=== PATIENT | male | born 1960 | race Native Hawaiian/Other Pacific Islander ===

== ENCOUNTER 2022-04-24 10:42 | Outpatient (CLI) | payer OTHER, SELFPAY ==
[2022-04-24 14:23] LABS: Chloride* 108 mmol/L (96-114); Potassium* 4.5 mmol/L (3.6-5.1); Sodium* 139 mmol/L (135-149)
[2022-04-24 14:26] LABS: Blood Urea Nitrogen* 18 mg/dL (7-30); Calcium* 9.2 mg/dL (8.4-10.6); Carbon Dioxide* 23 mmol/L (20-32); Cholesterol* 175 mg/dL (90-199); Creatinine* 1.2 mg/dL (0.5-1.5); Estimated Glomerular Filt Rate 69 ml/min; Glucose* 115 mg/dL (60-115); Triglycerides* 241 mg/dL (40-149)
[2022-04-24 14:27] LABS: HDL Cholesterol* 38 mg/dL (>=40); LDL Cholesterol Calculated 89 mg/dL (<100)
[2022-04-24 14:57] LABS: PSA Screen* 1.88 ng/mL (0.10-4.00)
== END 2022-04-24 10:43 | disposition home or self-care (01) ==
PROVIDERS: PCP Family Medicine; Visit Provider Family Medicine
DX: Z00.00 Encounter for general adult medical examination without abnormal findings (principal); N40.0 Benign prostatic hyperplasia without lower urinary tract symptoms; Z12.5 Encounter for screening for malignant neoplasm of prostate; Z13.6 Encounter for screening for cardiovascular disorders
CPT/HCPCS: 80048; 80061; 84153

== ENCOUNTER 2022-07-01 10:03 | Emergency (ER) | payer OTHER, SELFPAY ==
[2022-07-01 10:16] VITALS: BP 139/80; PULSE 88; RESP 18; TEMP 36.4; O2SAT 96; BMI 27.3
--- NOTE | 2022-07-01 10:34 | CRLHL7_ITS ---
For Patients: As a result of the Century Cures Act, medical imaging exams and procedure reports are released immediately into your electronic medical record. You may view this report before your referring provider. If you have questions, please contact your health care provider. INDICATION: Right neck swelling. TECHNIQUE: CT of the neck soft tissues performed with IV contrast. Contrast: 91 cc Isovue 370. COMPARISON: None available at this institution. FINDINGS: Prominence of the palatine tonsils, with slight heterogeneity. Left tonsilliths. No discrete fluid collection to suggest drainable abscess. The parotid and submandibular glands appear unremarkable. The thyroid gland is normal. There are large bilateral level 2A, right 3 and 4 lymph nodes, measuring up to 1.3 cm in short axis diameter on the right and 1.1 cm on the left. No discrete fluid collection identified. The visualized major vascular structures appear intact. The visualized intracranial components appear grossly intact. Visualized orbits and contents appear unremarkable. The paranasal sinuses are clear as visualized. Dependent atelectasis. Mild spondylosis of the cervical spine. IMPRESSION: 1. Tonsillitis. No defined fluid collection to suggest drainable abscess. 2. Bilateral cervical chain adenopathy may be reactive. Clinical and/or imaging follow-up to ensure resolution after appropriate treatment is recommended. Please note that all CT scans at this facility use dose modulation, iterative reconstruction, and/or weight-based dosing when appropriate to reduce radiation dose to as low as reasonably achievable. Dictated by Justin Syed MD @ 07/01/2022 12:13:39 PM (Electronically Signed)
--- NOTE | 2022-07-01 10:45 | ED_ITS ---
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 With swallowing he has pain on the right side of his neck as well. He had a negative COVID test, but no other testing. 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 Not had any history of the significant throat issues. No real shortness of breath, no chest pain, no other symptoms significant symptoms. As mention reports the fever in chill part of the illness is gone, but persistent sore throat. Related Data Home Medications Medication Instructions Recorded Confirmed tamsulosin 0.4 mg capsule 0.4 mg PO QDAY 04/24/22 04/24/22 Previous Rx's Medication Instructions Recorded tadalafil 5 mg tablet 2.5 mg PO QDAY #45 tabs 04/24/22 tamsulosin 0.4 mg capsule (Flomax) 0.4 mg PO QHS #90 caps 04/24/22 amoxicillin 500 mg-potassium 1 tab PO BID #20 tabs 07/01/22 clavulanate 125 mg tablet (Augmentin) hydrocodone 5 mg-acetaminophen 325 1 tab PO Q8H #7 tabs 07/01/22 mg tablet prednisone 20 mg tablet 20 mg PO BID #6 tabs 07/01/22 Allergies Allergy/AdvReac Type Severity Reaction Status Date / Time No Known Drug Allergies Allergy Verified 07/01/22 11:35 Review of Systems Status of ROS: Reports: 6 or more systems reviewed and unremarkable except as noted in History and below [facility] Medical History BPH (benign prostatic hyperplasia) Erectile dysfunction Latent tuberculosis Surgical History History of colonoscopy (01/08/12) History of repair of fracture of facial bone (2006) Status post right inguinal hernia repair (1989) Social History Narrative: , hospitalist [employer], nonsmoker Smoking Status: Never smoker Exam Narrative: Exam Narrative: Objective: Patient talks in normal sentences, has no trismus. Does have some right-sided cervical adenopathy that is slightly enlarged, his throat does show slight enlargement of his right side of his throat, but no obvious abscess. Does have some tonsillar swelling on the right as well, and some generalized redness in the back of the throat. No exudate noted Good peripheral perfusion noted, denies any skin rashes. Const: Vital Signs, click to edit/add: Vital Signs - 24 hr 07/01/22 10:16 07/01/22 12:53 Temperature 97.6 F Pulse Rate [Right Pulse Oximeter] 88 Respiratory Rate 18 18 Blood Pressure [Ri ght Upper Arm] 139/80 Pulse Oximetry 96 94 Oxygen Delivery Me thod Room Air Room Air Course Vital Signs Vital signs: Initial Vital Signs Temperature 97.6 F 07/01/22 10:16 Temperature Source Temporal Artery Scan 07/01/22 10:16 Pulse Rate 88 07/01/22 10:16 Respiratory Rate 18 07/01/22 10:16 Blood Pressure 139/80 07/01/22 10:16 Blood Pressure Mean 99 07/01/22 10:16 Blood Pressure Position Sitting 07/01/22 10:16 Pulse Oximetry 96 07/01/22 10:16 Oxygen Delivery Method 07/01/22 10:16 Vital Signs Temperature 97.6 F 07/01/22 10:16 Pulse Rate 88 07/01/22 10:16 Respiratory Rate 18 07/01/22 10:16 Blood Pressure 139/80 07/01/22 10:16 Pulse Oximetry 96 07/01/22 10:16 Oxygen Delivery Method 07/01/22 10:16 Temperature 97.6 F 07/01/22 10:16 Pulse Rate 88 07/01/22 10:16 Respiratory Rate 18 07/01/22 12:53 Blood Pressure 139/80 07/01/22 10:16 Pulse Oximetry 94 07/01/22 12:53 Oxygen Delivery Method 07/01/22 12:53 Medical Decision Making MDM Narrative Medical decision making narrative: At this point the patient has a post viral infection type severe sore throat, rule out right-sided peritonsillar abscess, strep, COVID/RSV/influenza. Patient will get the studies done, CT scan of the neck soft tissue, IV fluid, IV pain control, IV antibiotics. He also reports that he has had fetid type breath, and will start antibiotics at this time. Will use Unasyn, and we can hands bedoya to Augmentin for home. Will also give a dose of IV Solu-Medrol for the swelling. Disposition pending his CT scan results. Addendum: The patient is positive for strep throat, he has no evidence of abscess on his CT scan of the neck, his his COVID/RSV/influenza is negative. Labs look reassuring. Feels little better with pain medication and steroid, Unasyn been give IV. Will treat for strep throat with Augmentin 500 b.i.d. times 10 days, fluids, rest, Tylenol as needed, De [place] sparingly as it is quite sedating for Brandon, prednisone 20 mg b.i.d. for 3 days. These medicines were faxed into on pharmacy. Patient is asked to return if there is problems concerns or worsening. He did have significant cervical adenitis but in light of strep that appears like reactive adenitis Lab Data Labs: Lab Results 07/01/22 07/01/22 07/01/22 Range/Units 10:45 10:45 10:45 WBC 9.39 (4.50-11.00) K/uL RBC 5.17 (4.30-5.90) m/uL Hgb 15.6 (13.5-17.5) gm/dL Hct 46.7 (37.0-53.0) % MCV 90 (80-100) fL MCH 30 (26-34) pg MCHC 33 (32-36) gm/dL RDW Coeff of Marcy 12.5 (11.5-15.5) % Plt Count 279 (140-440) K/uL Neut % (Auto) 67.9 (42.0-72.0) % Lymph % (Auto) 22.8 (20-44) % Hudspeth % (Auto) 7.0 (0.0-11.0) % Eos % (Auto) 1.7 (0.0-7.0) % Baso % (Auto) 0.3 (0.0-3.0) % Neut # (Auto) 6.37 (1.7-7.0) K/uL Lymph # (Auto) 2.14 (0.90-2.90) K/uL Hudspeth # (Auto) 0.70 (0.00-0.90) K/UL Eos # (Auto) 0.16 (0.00-0.50) K/uL Baso # (Auto) 0.03 (0.00-0.30) K/uL Sodium 140 (135-149) mmol/L Potassium 4.1 (3.6-5.1) mmol/L Chloride 108 (96-114) mmol/L Carbon Dioxide 24 (20-32) mmol/L BUN 15 (7-30) mg/dL Creatinine 0.9 (0.5-1.5) mg/dL Estimated Creat Clear 77.57 Estimated GFR 97 ml/min Glucose 102 (60-115) mg/dL Calcium 9.0 (8.4-10.6) mg/dL C-Reactive Protein 4.7 H (0.5-1.0) mg/dL SARS-CoV-2 (PCR) Negative SARS-CoV-2 (Negative) Influenza Type A (PCR) Negative PCR FLU A (Negative) Influenza Type B (PCR) Negative PCR FLU B (Negative) RSV (PCR) Negative PCR RSV (Negative) Group A Strep DNA (Not Detectd) 07/01/22 Range/Units 10:45 WBC (4.50-11.00) K/uL RBC (4.30-5.90) m/uL Hgb (13.5-17.5) gm/dL Hct (37.0-53.0) % MCV (80-100) fL MCH (26-34) pg MCHC (32-36) gm/dL RDW Coeff of Marcy (11.5-15.5) % Plt Count (140-440) K/uL Neut % (Auto) (42.0-72.0) % Lymph % (Auto) (20-44) % Hudspeth % (Auto) (0.0-11.0) % Eos % (Auto) (0.0-7.0) % Baso % (Auto) (0.0-3.0) % Neut # (Auto) (1.7-7.0) K/uL Lymph # (Auto) (0.90-2.90) K/uL [place]speth # (Auto) (0.00-0.90) K/UL Eos # (Auto) (0.00-0.50) K/uL Baso # (Auto) (0.00-0.30) K/uL Sodium (135-149) mmol/L Potassium (3.6-5.1) mmol/L Chloride (96-114) mmol/L Carbon Dioxide (20-32) mmol/L BUN (7-30) mg/dL Creatinine (0.5-1.5) mg/dL Estimated Creat Clear Estimated GFR ml/min Glucose (60-115) mg/dL Calcium (8.4-10.6) mg/dL C-Reactive Protein (0.5-1.0) mg/dL SARS-CoV-2 (PCR) (Negative) Influenza Type A (PCR) (Negative) Influenza Type B (PCR) (Negative) RSV (PCR) (Negative) Group A Strep DNA DETECTED A (Not Detectd) Discharge Plan Discharge Clinical Impression: Acute cervical adenitis, Pharyngitis Patient Disposition: Home w/ Parent or Adult Condition: Improved Additional Instructions: Light activity, fluids, De [place], Augmentin, prednisone as prescribed. Eat yogurt, return to ED as needed Activity Level: Light activity Discharge Diet: Regular Prescriptions: New amoxicillin-pot clavulanate [Augmentin] 500-125 mg tablet 1 tab PO BID Qty: 20 0RF hydrocodone-acetaminophen 5-325 mg tablet 1 tab PO Q8H Qty: 7 0RF prednisone 20 mg tablet 20 mg PO BID Qty: 6 0RF No Action tamsulosin 0.4 mg capsule 0.4 mg PO QDAY tamsulosin [Flomax] 0.4 mg capsule 0.4 mg PO QHS Qty: 90 3RF tadalafil 5 mg tablet 2.5 mg PO QDAY Qty: 45 3RF Follow Up/Referrals: Erickson Stewart MD [Primary Care Provider] - Stand Alone Forms: MyHealth Info Instructions
[2022-07-01 10:59] LABS: Basophils Absolute Auto 0.03 K/uL (0.00-0.30); Basophils Percent Auto 0.3 % (0.0-3.0); Eosinophils Absolute Auto 0.16 K/uL (0.00-0.50); Eosinophils Percent Auto 1.7 % (0.0-7.0); Hematocrit 46.7 % (37.0-53.0); Hemoglobin* 15.6 gm/dL (13.5-17.5); Immature Granulocytes Abs Auto 0.03 K/uL (0.00-0.30); Immature Granulocytes Pct Auto 0.3 %; Lymphocytes Absolute Auto 2.14 K/uL (0.90-2.90); Lymphocytes Percent Auto 22.8 % (20-44); Mean Corpuscular HGB Conc 33 gm/dL (32-36); Mean Corpuscular Hemoglobin 30 pg (26-34); Mean Corpuscular Volume 90 fL (80-100); Neutrophils Absolute Auto 6.37 K/uL (1.7-7.0); Neutrophils Percent Auto 67.9 % (42.0-72.0); Platelet Count* 279 K/uL (140-440); RDW Coefficient of Variation % 12.5 % (11.5-15.5); Red Blood Count 5.17 m/uL (4.30-5.90); White Blood Count* 9.39 K/uL (4.50-11.00)
[2022-07-01] MEDS: 0.9 % SODIUM CHLORIDE 1000 ml 1,000 ML 6000 ML IV (11:06)
[2022-07-01] MEDS: METHYLPREDNISOLONE SOD SUCC 62.5 MG/ML (125) 125 MG IVP (11:07)
[2022-07-01] MEDS: MORPHINE 4 MG/ML INJ 1 MG IVP (11:07)
[2022-07-01 11:14] LABS: Chloride* 108 mmol/L (96-114); Potassium* 4.1 mmol/L (3.6-5.1); Sodium* 140 mmol/L (135-149)
[2022-07-01 11:17] LABS: Blood Urea Nitrogen* 15 mg/dL (7-30); Carbon Dioxide* 24 mmol/L (20-32); Creatinine* 0.9 mg/dL (0.5-1.5); Est. Creatinine Clearance* 77.57; Estimated Glomerular Filt Rate 97 ml/min
[2022-07-01 11:18] LABS: Glucose* 102 mg/dL (60-115)
[2022-07-01 11:20] LABS: C Reactive Protein* 4.7 mg/dL (0.5-1.0)
[2022-07-01 11:24] LABS: Slide Review Reflex No
[2022-07-01] MEDS: AMPICILLIN/SULBACTAM 3 GM in 0.9 % SODIUM CHLORIDE Mini-bag 100 ML IVPB (11:24)
[2022-07-01 11:33] LABS: Strep A DNA Probe* DETECTED (Not Detectd)
[2022-07-01 11:38] LABS: PCR FLU A Negative PCR FLU A (Negative); PCR FLU B Negative PCR FLU B (Negative); PCR RSV Negative PCR RSV (Negative)
[2022-07-01 12:09] LABS: SARS PCR* Negative SARS-CoV-2 (Negative)
[2022-07-01 12:53] VITALS: RESP 18; O2SAT 94
== END 2022-07-01 12:54 | disposition home or self-care (01) ==
PROVIDERS: Emergency Provider Family Medicine; PCP Family Medicine
DX: J02.9 Acute pharyngitis, unspecified (principal); L04.0 Acute lymphadenitis of face, head and neck
CPT/HCPCS: 36415; 70491; 80048; 85025; 86140; 87502; 87634; 87635; 87651; 96365; 96375; 99283; 99285; J0295; J2270; J2930; J7030; Q9967